=== PATIENT | female | born 1960 | race Caucasian/White ===

== ENCOUNTER 2016-04-26 13:37 | Outpatient (RCR) | payer MEDICAID ==
--- OUTSIDE RECORDS SUMMARY | 2016-02-18 14:11 | XMS REPORT | Continuity of Care Document ---
Author Author [facility] Organization [facility] Address Unknown Phone Unavailable Care Team Providers Care Pastry Artist Name Role Phone LORNA DONALDSON MD PCP Insurance Providers Payer Name Policy Number Subscriber Name Relationship Medicaid [place] [id number] Irina Nolasco 17 Self / Same As Patient Problems No problem information available. Medications No medication information available. Social History Social History Problem Response Recorded Date/Time Recent Foreign Travel N SEE [place] 09/01/2015 2:05pm Hospital Discharge Instructions No hospital discharge instructions. Plan of Care Prescriptions See Medication Section Functional Status No functional status results. Allergies, Adverse Reactions, Alerts No allergy information available. Immunizations No immunization records. Vital Signs No known vital signs results. Results Laboratory Results Test Name Result Units Flags Reference Collection Date/Time Result Date/ Time Comments White Blood Count 10.3 10^3/uL 4.3-11.0 08/27/2015 2:20pm 08/27/2015 2: 38pm Red Blood Count 4.44 10^6/uL 4.35-5.85 08/27/2015 2:20pm 08/27/2015 2: 38pm Hemoglobin 13.3 G/DL 11.5-16.0 08/27/2015 2:20pm 08/27/2015 2:38pm Hematocrit 39 % 35-52 08/27/2015 2:20pm 08/27/2015 2:38pm Mean Corpuscular Volume 88 FL 80-99 08/27/2015 2:20pm 08/27/2015 2: 38pm Mean Corpuscular Hemoglobin 30 PG 25-34 08/27/2015 2:20pm 08/27/2015 2: 38pm Mean Corpuscular Hemoglobin Concent 34 G/DL 32-36 08/27/2015 2:20pm 2:38pm Red Cell Distribution Width 14.1 % 10.0-14.5 08/27/2015 2:20pm 2015 2:38pm Platelet Count 256 10^3/uL 130-400 08/27/2015 2:2008/27/2015 2:38pm Mean Platelet Volume 9.6 FL 7.4-10.4 08/27/2015 2:2008/27/2015 2: 38pm Neutrophils (%) (Auto) 76 % H 42-75 08/27/2015 2:08/27/2015 2:38pm Lymphocytes (%) (Auto) 16 % 12-44 08/27/2015 2:2008/27/2015 2:38pm Monocytes (%) (Auto) 6 % 0-12 08/27/2015 2:08/27/2015 2:38pm Eosinophils (%) (Auto) 2 % 0-10 08/27/2015 2:08/27/2015 2:38pm Basophils (%) (Auto) 0 % 0-10 08/27/2015 2:08/27/2015 2:38pm Neutrophils # (Auto) 7.9 X 10^3 H 1.8-7.8 08/27/2015 2:08/27/2015 2: 38pm Lymphocytes # (Auto) 1.6 X 10^3 1.0-4.0 08/27/2015 2:2008/27/2015 2: 38pm Monocytes # (Auto) 0.6 X 10^3 0.0-1.0 08/27/2015 2:08/27/2015 2: 38pm Eosinophils # (Auto) 0.2 10^3/uL 0.0-0.3 08/27/2015 2:20pm 08/27/2015 2 :38pm Basophils # (Auto) 0.0 10^3/uL 0.0-0.1 08/27/2015 2:20pm 08/27/2015 2: 38pm Sodium Level 141 MMOL/L 135-145 08/27/2015 2:50pm 08/27/2015 3:14pm Potassium Level 3.7 MMOL/L 3.6-5.0 08/27/2015 2:50pm 08/27/2015 3:14pm Chloride Level 107 MMOL/L 98-107 08/27/2015 2:50pm 08/27/2015 3:14pm Carbon Dioxide Level 26 MMOL/L 21-32 08/27/2015 2:50pm 08/27/2015 3: 14pm Anion Gap 8 MMOL/L 5-14 08/27/2015 2:50pm 08/27/2015 3:14pm Blood Urea Nitrogen 6 MG/DL L 7-18 08/27/2015 2:50pm 08/27/2015 3:14pm Creatinine 0.78 MG/DL 0.60-1.30 08/27/2015 2:50pm 08/27/2015 3:14pm BUN/Creatinine Ratio 8 08/27/2015 2:50pm 08/27/2015 3:14pm Estimat Glomerular Filtration Rate > 60 08/27/2015 2:50pm 2015 3:14pm GFR INTERPRETIVE DATA UNITS FOR ESTIMATED GFR (eGFR): mL/min/1.73 M2 REFERENCE RANGE FOR ESTIMATED GFR (eGFR) eGFR NORMAL eGFR >60 MODERATELY DECREASED eGFR 30-59 SEVERLY DECREASED eGFR 15-29 KIDNEY FAILURE <15 (OR DIALYSIS) Glucose Level 129 MG/DL H 70-105 08/27/2015 2:50pm 08/27/2015 3:14pm Calcium Level 8.7 MG/DL 8.5-10.1 08/27/2015 2:50pm 08/27/2015 3:14pm Total Bilirubin 0.3 MG/DL 0.1-1.0 08/27/2015 2:50pm 08/27/2015 3:14pm Alkaline Phosphatase 81 U/L 40-136 08/27/2015 2:50pm 08/27/2015 3:14pm Aspartate Amino Transf (AST/SGOT) 55 U/L H 5-34 08/27/2015 2:50pm 2015 3:14pm Alanine Aminotransferase (ALT/SGPT) 77 U/L H 0-55 08/27/2015 2:50pm 08/26 3:14pm Total Protein 6.8 G/DL 6.4-8.2 08/27/2015 2:50pm 08/27/2015 3:14pm Albumin 4.2 G/DL 3.2-4.5 08/27/2015 2:50pm 08/27/2015 3:14pm Thyroid Stimulating Hormone (TSH) 0.41 UIU/ML 0.35-4.94 08/27/2015 2: 50pm 08/27/2015 3:14pm Procedures No known history of procedures. Encounters Encounter Location Arrival/Admit Date Discharge/Depart Date Attending Provider Discharged Recurring [facility] 10/13/15 11:58am 11:59pm EZEQUIEL THOMPSON MD
[2016-03-08 15:29] LABS: BASOPHILS # (AUTO) 0.1 10^3/uL (0.0-0.1); BASOPHILS % (AUTO) 1 % (0-10); EOSINOPHILS # (AUTO) 0.3 10^3/uL (0.0-0.3); EOSINOPHILS % (AUTO) 4 % (0-10); LYMPHOCYTES # (AUTO) 2.3 X 10^3 (1.0-4.0); LYMPHOCYTES % (AUTO) 26 % (12-44); MEAN CORPUSCULAR HEMOGLOBIN 30 PG (25-34); MEAN CORPUSCULAR HGB CONC 33 G/DL (32-36); MEAN CORPUSCULAR VOLUME 89 FL (80-99); MEAN PLATELET VOLUME 8.9 FL (7.4-10.4); MONOCYTES # (AUTO) 0.7 X 10^3 (0.0-1.0); MONOCYTES % (AUTO) 8 % (0-12); NEUTROPHILS # (AUTO) 5.6 X 10^3 (1.8-7.8); NEUTROPHILS % (AUTO) 62 % (42-75); PLATELET COUNT 328 10^3/uL (130-400); RED BLOOD COUNT 4.39 10^6/uL (4.35-5.85); RED CELL DISTRIBUTION WIDTH 14.8 % (10.0-14.5); WHITE BLOOD COUNT 9.1 10^3/uL (4.3-11.0)
[2016-03-08 15:52] LABS: ALANINE AMINOTRANSFERASE 19 U/L (0-55); ALBUMIN 4.2 G/DL (3.2-4.5); ANION GAP 10 MMOL/L (5-14); ASPARTATE AMINO TRANSFERASE 22 U/L (5-34); BILIRUBIN,TOTAL 0.2 MG/DL (0.1-1.0); BLOOD UREA NITROGEN 7 MG/DL (7-18); BUN/CREATININE RATIO 7; CALCIUM 8.9 MG/DL (8.5-10.1); CARBON DIOXIDE 24 MMOL/L (21-32); CHLORIDE 108 MMOL/L (98-107); CREATININE SERUM 0.94 MG/DL (0.60-1.30); GFR ESTIMATED > 60; GLUCOSE 79 MG/DL (70-105); POTASSIUM 4.2 MMOL/L (3.6-5.0); SODIUM 142 MMOL/L (135-145); TOTAL PROTEIN 6.9 G/DL (6.4-8.2)
== END 2016-05-18 | disposition home or self-care (01) ==
LOC: ONC 13:37
PROVIDERS: ATTEND Internal Medicine Hematology & Oncology
DX: C50.912 Malignant neoplasm of unspecified site of left female breast (principal); E03.9 Hypothyroidism, unspecified; R63.4 Abnormal weight loss; F17.210 Nicotine dependence, cigarettes, uncomplicated; Z17.1 Estrogen receptor negative status [ER-]; Z90.13 Acquired absence of bilateral breasts and nipples; Z45.2 Encounter for adjustment and management of vascular access device
CPT/HCPCS: 36591; 80053; 85025; 86300; 96523; 99213

== ENCOUNTER 2016-06-12 13:30 | Outpatient (RCR) | payer MEDICAID ==
--- OUTSIDE RECORDS SUMMARY | 2016-06-08 13:17 | XMS REPORT | Continuity of Care Document ---
Author Author [facility] Organization [facility] Address Unknown Phone Unavailable Care Team Providers Care Shoe Salesman Name Role Phone LORNA DONALDSON MD PCP Insurance Providers Payer Name Policy Number Subscriber Name Relationship Medicaid [place] [id number] Irina Nolasco 17 Self / Same As Patient Problems No problem information available. Medications No medication information available. Social History Social History Problem Response Recorded Date/Time Recent Foreign Travel No 02/18/2016 2:07pm Hospital Discharge Instructions No hospital discharge instructions. Plan of Care Prescriptions See Medication Section Functional Status No functional status results. Allergies, Adverse Reactions, Alerts No allergy information available. Immunizations No immunization records. Vital Signs No known vital signs results. Results Laboratory Results Test Name Result Units Flags Reference Collection Date/Time Result Date/ Time Comments White Blood Count 9.1 10^3/uL 4.3-11.0 03/08/2016 3:25pm 03/08/2016 3: 29pm Red Blood Count 4.39 10^6/uL 4.35-5.85 03/08/2016 3:25pm 03/08/2016 3: 29pm Hemoglobin 13.0 G/DL 11.5-16.0 03/08/2016 3:25pm 03/08/2016 3:29pm Hematocrit 39 % 35-52 03/08/2016 3:25pm 03/08/2016 3:29pm Mean Corpuscular Volume 89 FL 80-99 03/08/2016 3:25pm 03/08/2016 3: 29pm Mean Corpuscular Hemoglobin 30 PG 25-34 03/08/2016 3:25pm 03/08/2016 3: 29pm Mean Corpuscular Hemoglobin Concent 33 G/DL 32-36 03/08/2016 3:25pm 10/2015 3:29pm Red Cell Distribution Width 14.8 % H 10.0-14.5 03/08/2016 3:25pm 2015 3:29pm Platelet Count 328 10^3/uL 130-400 03/08/2016 3:25pm 03/08/2016 3:29pm Mean Platelet Volume 8.9 FL 7.4-10.4 03/08/2016 3:25pm 03/08/2016 3: 29pm Neutrophils (%) (Auto) 62 % 42-75 03/08/2016 3:25pm 03/08/2016 3:29pm Lymphocytes (%) (Auto) 26 % 12-44 03/08/2016 3:25pm 03/08/2016 3:29pm Monocytes (%) (Auto) 8 % 0-12 03/08/2016 3:25pm 03/08/2016 3:29pm Eosinophils (%) (Auto) 4 % 0-10 03/08/2016 3:25pm 03/08/2016 3:29pm Basophils (%) (Auto) 1 % 0-10 03/08/2016 3:25pm 03/08/2016 3:29pm Neutrophils # (Auto) 5.6 X 10^3 1.8-7.8 03/08/2016 3:25pm 03/08/2016 3: 29pm Lymphocytes # (Auto) 2.3 X 10^3 1.0-4.0 03/08/2016 3:25pm 03/08/2016 3: 29pm Monocytes # (Auto) 0.7 X 10^3 0.0-1.0 03/08/2016 3:25pm 03/08/2016 3: 29pm Eosinophils # (Auto) 0.3 10^3/uL 0.0-0.3 03/08/2016 3:25pm 03/08/2016 3 :29pm Basophils # (Auto) 0.1 10^3/uL 0.0-0.1 03/08/2016 3:25pm 03/08/2016 3: 29pm Sodium Level 142 MMOL/L 135-145 03/08/2016 3:03/08/2016 3:54pm Potassium Level 4.2 MMOL/L 3.6-5.0 03/08/2016 3:03/08/2016 3:54pm Chloride Level 108 MMOL/L H 98-107 03/08/2016 3:03/08/2016 3:54pm Carbon Dioxide Level 24 MMOL/L 21-32 03/08/2016 3:03/08/2016 3: 54pm Anion Gap 10 MMOL/L 5-14 03/08/2016 3:03/08/2016 3:54pm Blood Urea Nitrogen 7 MG/DL 7-18 03/08/2016 3:03/08/2016 3:54pm Creatinine 0.94 MG/DL 0.60-1.30 03/08/2016 3:03/08/2016 3:54pm BUN/Creatinine Ratio 7 03/08/2016 3:03/08/2016 3:54pm Estimat Glomerular Filtration Rate > 60 03/08/2016 3:2015 3:54pm GFR INTERPRETIVE DATA UNITS FOR ESTIMATED GFR (eGFR): mL/min/1.73 M2 REFERENCE RANGE FOR ESTIMATED GFR (eGFR) eGFR NORMAL eGFR >60 MODERATELY DECREASED eGFR 30-59 SEVERLY DECREASED eGFR 15-29 KIDNEY FAILURE <15 (OR DIALYSIS) Glucose Level 79 MG/DL 70-105 03/08/2016 3:03/08/2016 3:54pm Calcium Level 8.9 MG/DL 8.5-10.1 03/08/2016 3:03/08/2016 3:54pm Total Bilirubin 0.2 MG/DL 0.1-1.0 03/08/2016 3:03/08/2016 3:54pm Alkaline Phosphatase 89 U/L 40-136 03/08/2016 3:03/08/2016 3:54pm Aspartate Amino Transf (AST/SGOT) 22 U/L 5-34 03/08/2016 3:2015 3:54pm Alanine Aminotransferase (ALT/SGPT) 19 U/L 0-55 03/08/2016 3:03/08 3:54pm Total Protein 6.9 G/DL 6.4-8.2 03/08/2016 3:25pm 03/08/2016 3:54pm Albumin 4.2 G/DL 3.2-4.5 03/08/2016 3:25pm 03/08/2016 3:54pm Procedures No known history of procedures. Encounters Encounter Location Arrival/Admit Date Discharge/Depart Date Attending Provider Discharged Recurring [facility] 04/26/16 1:37pm 11:59pm EZEQUIEL THOMPSON MD
[2016-06-12 14:01] LABS: BASOPHILS % (AUTO) 0 % (0-10); EOSINOPHILS # (AUTO) 0.3 10^3/uL (0.0-0.3); EOSINOPHILS % (AUTO) 3 % (0-10); LYMPHOCYTES # (AUTO) 1.7 X 10^3 (1.0-4.0); LYMPHOCYTES % (AUTO) 18 % (12-44); MEAN CORPUSCULAR HEMOGLOBIN 29 PG (25-34); MEAN CORPUSCULAR HGB CONC 33 G/DL (32-36); MEAN CORPUSCULAR VOLUME 89 FL (80-99); MEAN PLATELET VOLUME 9.2 FL (7.4-10.4); MONOCYTES # (AUTO) 0.9 X 10^3 (0.0-1.0); MONOCYTES % (AUTO) 10 % (0-12); NEUTROPHILS # (AUTO) 6.4 X 10^3 (1.8-7.8); NEUTROPHILS % (AUTO) 69 % (42-75); PLATELET COUNT 308 10^3/uL (130-400); RED BLOOD COUNT 4.56 10^6/uL (4.35-5.85); RED CELL DISTRIBUTION WIDTH 14.9 % (10.0-14.5); WHITE BLOOD COUNT 9.3 10^3/uL (4.3-11.0)
[2016-06-12 14:36] LABS: ALANINE AMINOTRANSFERASE 23 U/L (0-55); ANION GAP 10 MMOL/L (5-14); ASPARTATE AMINO TRANSFERASE 27 U/L (5-34); BILIRUBIN,TOTAL 0.2 MG/DL (0.1-1.0); BLOOD UREA NITROGEN 8 MG/DL (7-18); BUN/CREATININE RATIO 9; CALCIUM 8.5 MG/DL (8.5-10.1); CARBON DIOXIDE 23 MMOL/L (21-32); CHLORIDE 109 MMOL/L (98-107); CREATININE SERUM 0.85 MG/DL (0.60-1.30); GFR ESTIMATED > 60; GLUCOSE 103 MG/DL (70-105); POTASSIUM 4.1 MMOL/L (3.6-5.0); SODIUM 142 MMOL/L (135-145); TOTAL PROTEIN 6.5 G/DL (6.4-8.2)
== END 2016-09-06 | disposition home or self-care (01) ==
LOC: ONC 13:30
PROVIDERS: ATTEND Internal Medicine Hematology & Oncology
DX: C50.912 Malignant neoplasm of unspecified site of left female breast (principal); E03.9 Hypothyroidism, unspecified; F17.210 Nicotine dependence, cigarettes, uncomplicated; Z17.1 Estrogen receptor negative status [ER-]; Z90.13 Acquired absence of bilateral breasts and nipples; Z45.2 Encounter for adjustment and management of vascular access device
CPT/HCPCS: 36415; 80053; 85025; 96523; 99213

== ENCOUNTER 2017-06-20 13:41 | Outpatient (RCR) | payer MEDICAID ==
[2017-06-20 14:12] LABS: BASOPHILS % (AUTO) 0 % (0-10); EOSINOPHILS # (AUTO) 0.2 10^3/uL (0.0-0.3); EOSINOPHILS % (AUTO) 3 % (0-10); HEMATOCRIT 42 % (35-52); HEMOGLOBIN 14.1 G/DL (11.5-16.0); LYMPHOCYTES # (AUTO) 1.8 X 10^3 (1.0-4.0); LYMPHOCYTES % (AUTO) 26 % (12-44); MEAN CORPUSCULAR HEMOGLOBIN 30 PG (25-34); MEAN CORPUSCULAR HGB CONC 34 G/DL (32-36); MEAN CORPUSCULAR VOLUME 90 FL (80-99); MEAN PLATELET VOLUME 9.4 FL (7.4-10.4); MONOCYTES # (AUTO) 0.8 X 10^3 (0.0-1.0); MONOCYTES % (AUTO) 12 % (0-12); NEUTROPHILS # (AUTO) 4.1 X 10^3 (1.8-7.8); NEUTROPHILS % (AUTO) 59 % (42-75); PLATELET COUNT 296 10^3/uL (130-400); RED BLOOD COUNT 4.69 10^6/uL (4.35-5.85); RED CELL DISTRIBUTION WIDTH 14.4 % (10.0-14.5); WHITE BLOOD COUNT 6.9 10^3/uL (4.3-11.0)
[2017-06-20 14:32] LABS: ALANINE AMINOTRANSFERASE 22 U/L (0-55); ALBUMIN 4.3 GM/DL (3.2-4.5); ALKALINE PHOSPHATASE 61 U/L (40-136); BILIRUBIN,TOTAL 0.3 MG/DL (0.1-1.0); BUN/CREATININE RATIO 11; CALCIUM 9.4 MG/DL (8.5-10.1); CARBON DIOXIDE 25 MMOL/L (21-32); CHLORIDE 105 MMOL/L (98-107); CREATININE SERUM 0.73 MG/DL (0.60-1.30); GFR ESTIMATED > 60; GLUCOSE 101 MG/DL (70-105); SODIUM 139 MMOL/L (135-145); TOTAL PROTEIN 7.1 GM/DL (6.4-8.2)
[2017-06-20] MEDS ORDERED: QUET200T57 (15:00)
[2017-06-20] MEDS ORDERED: FENT1PAT8 (15:00)
[2017-06-20] MEDS ORDERED: ZOLP10TA5 (15:00)
[2017-06-20] MEDS ORDERED: PROM25TA14 (15:00)
== END 2017-09-18 | disposition home or self-care (01) ==
LOC: ONC 13:41
PROVIDERS: ATTEND Internal Medicine Hematology & Oncology
DX: C50.912 Malignant neoplasm of unspecified site of left female breast (principal); E03.9 Hypothyroidism, unspecified; F17.210 Nicotine dependence, cigarettes, uncomplicated; Z17.1 Estrogen receptor negative status [ER-]; Z90.13 Acquired absence of bilateral breasts and nipples
CPT/HCPCS: 36415; 36591; 80053; 85025

== ENCOUNTER 2017-06-20 14:37 | Emergency (ER) | payer MEDICAID ==
[~2017-06-20] VITALS: Ht 167.6 cm; Wt 66.7 kg
--- OUTSIDE RECORDS SUMMARY | 2017-06-20 14:45 | XMS REPORT | Continuity of Care Document ---
Author Author [facility] Organization [facility] Address Unknown Phone Unavailable Allergies There is no data. Medications There is no data. Problems Date Dx Coded Attending Type Code Diagnosis Diagnosed By 09/01/2014 PASCALE BRAGG Ot 174.9 MALIGN NEOPL BREAST NOS 09/01/2014 PASCALE BRAGG Ot 305.1 TOBACCO USE DISORDER 09/01/2014 PASCALE BRAGG Ot V58.69 OTH MED,LT,CURRENT USE 09/01/2014 DONNA SCOTT, EZEQUIEL Ot 174.9 09/01/2014 DONNA SCOTT, EZEQUIEL Ot 305.1 09/01/2014 DONNA SCOTT, EZEQUIEL Ot V58.69 09/08/2014 DONNA SCOTT, EZEQUIEL Ot 174.9 09/08/2014 DONNA SCOTT, STEPHANIE-KATHY Ot 305.1 09/08/2014 DONNA SCOTT, EZEQUIEL Ot V58.69 09/16/2014 DONNA SCOTT, EZEQUIEL Ot 174.9 09/16/2014 DONNA SCOTT, STEPHANIE-KATHY Ot 305.1 09/16/2014 DONNA SCOTT, STEPHANIE-KATHY Ot V58.69 09/17/2014 DONNA SCOTT, EZEQUIEL Ot 174.9 09/17/2014 DONNA SCOTT, STEPHANIE-KATHY Ot 305.1 09/17/2014 DONNA SCOTT, EZEQUIEL Ot V58.69 10/21/2014 DONNA SCOTT, EZEQUIEL Ot 174.9 10/21/2014 DONNA SCOTT, STEPHANIE-KATHY Ot 305.1 10/21/2014 DONNA SCOTT, EZEQUIEL Ot V58.69 12/15/2014 DONNA SCOTT, EZEQUIEL Ot 174.9 MALIGN NEOPL BREAST NOS 12/15/2014 DONNA SCOTT, EZEQUIEL Ot 305.1 TOBACCO USE DISORDER 12/15/2014 DONNA SCOTT, EZEQUIEL Ot V58.69 OTH MED,LT,CURRENT USE 02/11/2015 DONNA SCOTT, EZEQUIEL Ot 174.9 02/11/2015 DONNA SCOTT, EZEQUIEL Ot 305.1 02/11/2015 DONNA SCOTT, EZEQUIEL Ot V58.69 03/19/2015 DONNA SCOTT, EZEQUIEL Ot 174.9 03/19/2015 DONNA SCOTT, EZEQUIEL Ot 305.1 03/19/2015 DONNA SCOTT, EZEQUIEL Ot V58.69 05/18/2015 EZEQUIEL THOMPSON MD, Ot C50.912 MALIGNANT NEOPLASM OF UNSPECIFIED SITE O 05/18/2015 EZEQUIEL THOMPSON MD Ot E03.9 HYPOTHYROIDISM, UNSPECIFIED 05/18/2015 EZEQUIEL THOMPSON MD Ot F17.210 NICOTINE DEPENDENCE, CIGARETTES, UNCOMPL 05/18/2015 EZEQUIEL THOMPSON MD, Ot R63.4 ABNORMAL WEIGHT LOSS 05/18/2015 EZEQUIEL THOMPSON MD Ot Z17.1 ESTROGEN RECEPTOR NEGATIVE STATUS [ER-] 05/18/2015 EZEQUIEL THOMPSON MD, Ot Z45.2 ENCOUNTER FOR ADJUSTMENT AND MANAGEMENT 05/18/2015 EZEQUIEL THOMPSON MD Ot 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 08/25/2015 EZEQUIEL THOMPSON MD Ot C50.912 MALIGNANT NEOPLASM OF UNSPECIFIED SITE O 08/25/2015 EZEQUIEL THOMPSON MD Ot E03.9 HYPOTHYROIDISM, UNSPECIFIED 08/25/2015 EZEQUIEL THOMPSON MD Ot F17.210 NICOTINE DEPENDENCE, CIGARETTES, UNCOMPL 08/25/2015 EZEQUIEL THOMPSON MD Ot R63.4 ABNORMAL WEIGHT LOSS 08/25/2015 EZEQUIEL THOMPSON MD, Ot Z17.1 ESTROGEN RECEPTOR NEGATIVE STATUS [ER-] 08/25/2015 EZEQUIEL THOMPSON MD Ot Z45.2 ENCOUNTER FOR ADJUSTMENT AND MANAGEMENT 08/25/2015 EZEQUIEL THOMPSON MD Ot 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 08/31/2015 EZEQUIEL THOMPSON MD, Ot C50.912 MALIGNANT NEOPLASM OF UNSPECIFIED SITE O 08/31/2015 EZEQUIEL THOMPSON MD Ot E03.9 HYPOTHYROIDISM, UNSPECIFIED 08/31/2015 EZEQUIEL THOMPSON MD Ot F17.210 NICOTINE DEPENDENCE, CIGARETTES, UNCOMPL 08/31/2015 EZEQUIEL THOMPSON MD Ot R63.4 ABNORMAL WEIGHT LOSS 08/31/2015 EZEQUIEL THOMPSON MD Ot Z17.1 ESTROGEN RECEPTOR NEGATIVE STATUS [ER-] 08/31/2015 EZEQUIEL THOMPSON MD Ot Z45.2 ENCOUNTER FOR ADJUSTMENT AND MANAGEMENT 08/31/2015 EZEQUIEL THOMPSON MD Ot 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 10/07/2015 EZEQUIEL THOMSPON MD Ot C50.912 MALIGNANT NEOPLASM OF UNSPECIFIED SITE O 10/07/2015 EZEQUIEL THOMPSON MD Ot E03.9 HYPOTHYROIDISM, UNSPECIFIED 10/07/2015 EZEQUIEL THOMPSON MD Ot F17.210 NICOTINE DEPENDENCE, CIGARETTES, UNCOMPL 10/07/2015 EZEQUIEL THOMPSON MD Ot R63.4 ABNORMAL WEIGHT LOSS 10/07/2015 EZEQUIEL THOMPSON MD, Ot Z17.1 ESTROGEN RECEPTOR NEGATIVE STATUS [ER-] 10/07/2015 EZEQUIEL THOMPSON MD Ot Z45.2 ENCOUNTER FOR ADJUSTMENT AND MANAGEMENT 10/07/2015 EZEQUIEL THOMPSON MD Ot 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 11/25/2015 EZEQUIEL THOMPSON MD Ot C50.912 MALIGNANT NEOPLASM OF UNSPECIFIED SITE O 11/25/2015 EZEQUIEL THOMPSON MD Ot E03.9 HYPOTHYROIDISM, UNSPECIFIED 11/25/2015 EZEQUIEL THOMPSON MD Ot F17.210 NICOTINE DEPENDENCE, CIGARETTES, UNCOMPL 11/25/2015 EZEQUIEL THOMPSON MD Ot R63.4 ABNORMAL WEIGHT LOSS 11/25/2015 EZEQUIEL THOMPSON MD Ot Z17.1 ESTROGEN RECEPTOR NEGATIVE STATUS [ER-] 11/25/2015 EZEQUIEL THOMPSON MD Ot Z45.2 ENCOUNTER FOR ADJUSTMENT AND MANAGEMENT 11/25/2015 EZEQUIEL THOMPSON MD Ot 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 02/21/2016 EZEQUIEL THOMPSON MD Ot C50.912 MALIGNANT NEOPLASM OF UNSPECIFIED SITE O 02/21/2016 EZEQUIEL THOMPSON MD Ot E03.9 HYPOTHYROIDISM, UNSPECIFIED 02/21/2016 EZEQUIEL THOMPSON MD Ot F17.210 NICOTINE DEPENDENCE, CIGARETTES, UNCOMPL 02/21/2016 EZEQUIEL THOMPSON MD Ot R63.4 ABNORMAL WEIGHT LOSS 02/21/2016 EZEQUIEL THOMPSON MD Ot Z17.1 ESTROGEN RECEPTOR NEGATIVE STATUS [ER-] 02/21/2016 EZEQUIEL THOMPSON MD Ot Z45.2 ENCOUNTER FOR ADJUSTMENT AND MANAGEMENT 02/21/2016 EZEQUIEL THOMPSON MD Ot 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 03/17/2016 EZEQUIEL THOMPSON MD Ot C50.912 MALIGNANT NEOPLASM OF UNSPECIFIED SITE O 03/17/2016 EZEQUIEL THOMPSON MD Ot E03.9 HYPOTHYROIDISM, UNSPECIFIED 03/17/2016 EZEQUIEL THOMPSON MD Ot F17.210 NICOTINE DEPENDENCE, CIGARETTES, UNCOMPL 03/17/2016 EZEQUIEL THOMPSON MD Ot R63.4 ABNORMAL WEIGHT LOSS 03/17/2016 EZEQUIEL THOMPSON MD Ot Z17.1 ESTROGEN RECEPTOR NEGATIVE STATUS [ER-] 03/17/2016 EZEQUIEL THOMPSON MD Ot Z45.2 ENCOUNTER FOR ADJUSTMENT AND MANAGEMENT 03/17/2016 EZEQUIEL THOMPSON MD Ot 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 05/05/2016 EZEQUIEL THOMPSON MD Ot C50.912 MALIGNANT NEOPLASM OF UNSPECIFIED SITE O 05/05/2016 EZEQUIEL THOMPSON MD Ot E03.9 HYPOTHYROIDISM, UNSPECIFIED 05/05/2016 EZEQUIEL THOMPSON MD Ot F17.210 NICOTINE DEPENDENCE, CIGARETTES, UNCOMPL 05/05/2016 EZEQUIEL THOMPSON MD Ot R63.4 ABNORMAL WEIGHT LOSS 05/05/2016 EZEQUIEL THOMPSON MD Ot Z17.1 ESTROGEN RECEPTOR NEGATIVE STATUS [ER-] 05/05/2016 EZEQUIEL THOMPSON MD Ot Z45.2 ENCOUNTER FOR ADJUSTMENT AND MANAGEMENT 05/05/2016 EZEQUIEL THOMPSON MD Ot 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 05/18/2016 EZEQUIEL THOMPSON MD Ot C50.912 MALIGNANT NEOPLASM OF UNSPECIFIED SITE O 05/18/2016 EZEQUIEL THOMPSON MD Ot E03.9 HYPOTHYROIDISM, UNSPECIFIED 05/18/2016 EZEQUIEL THOMPSON MD Ot F17.210 NICOTINE DEPENDENCE, CIGARETTES, UNCOMPL 05/18/2016 EZEQUIEL THOMPSON MD Ot R63.4 ABNORMAL WEIGHT LOSS 05/18/2016 EZEQUIEL THOMPSON MD Ot Z17.1 ESTROGEN RECEPTOR NEGATIVE STATUS [ER-] 05/18/2016 EZEQUIEL THOMPSON MD Ot Z45.2 ENCOUNTER FOR ADJUSTMENT AND MANAGEMENT 05/18/2016 EZEQUIEL THOMPSON MD Ot 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 06/08/2016 EZEQUIEL THOMPSON MD, Ot C50.912 MALIGNANT NEOPLASM OF UNSPECIFIED SITE O 06/08/2016 EZEQUIEL THOMPSON MD Ot E03.9 HYPOTHYROIDISM, UNSPECIFIED 06/08/2016 EZEQUIEL THOMPSON MD Ot F17.210 NICOTINE DEPENDENCE, CIGARETTES, UNCOMPL 06/08/2016 EZEQUIEL THOMPSON MD Ot R63.4 ABNORMAL WEIGHT LOSS 06/08/2016 EZEQUIEL THOMPSON MD Ot Z17.1 ESTROGEN RECEPTOR NEGATIVE STATUS [ER-] 06/08/2016 EZEQUIEL THOMPSON MD Ot Z45.2 ENCOUNTER FOR ADJUSTMENT AND MANAGEMENT 06/08/2016 EZEQUIEL THOMPSON MD Ot 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 06/09/2016 EZEQUIEL THOMPSON MD, Ot C50.912 MALIGNANT NEOPLASM OF UNSPECIFIED SITE O 06/09/2016 EZEQUIEL THOMPSON MD Ot E03.9 HYPOTHYROIDISM, UNSPECIFIED 06/09/2016 EZEQUIEL THOMPSON MD Ot F17.210 NICOTINE DEPENDENCE, CIGARETTES, UNCOMPL 06/09/2016 EZEQUIEL THOMPSON MD Ot R63.4 ABNORMAL WEIGHT LOSS 06/09/2016 EZEQUIEL THOMPSON MD Ot Z17.1 ESTROGEN RECEPTOR NEGATIVE STATUS [ER-] 06/09/2016 EZEQUIEL THOMPSON MD Ot Z45.2 ENCOUNTER FOR ADJUSTMENT AND MANAGEMENT 06/09/2016 EZEQUIEL THOMPSON MD Ot 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 07/25/2016 EZEQUIEL THOMPSON MD Ot C50.912 MALIGNANT NEOPLASM OF UNSPECIFIED SITE O 07/25/2016 EZEQUIEL THOMPSON MD Ot E03.9 HYPOTHYROIDISM, UNSPECIFIED 07/25/2016 EZEQUIEL THOMPSON MD Ot F17.210 NICOTINE DEPENDENCE, CIGARETTES, UNCOMPL 07/25/2016 EZEQUIEL THOMPSON MD Ot Z17.1 ESTROGEN RECEPTOR NEGATIVE STATUS [ER-] 07/25/2016 EZEQUIEL THOMPSON MD Ot Z45.2 ENCOUNTER FOR ADJUSTMENT AND MANAGEMENT 07/25/2016 EZEQUIEL THOMPSON MD Ot 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 Results There is no data. Encounters ACCT No. Visit Date/Time Discharge Status Pt. Type Provider Facility Loc./Unit Complaint [id number] 09/07/2016 00:16:00 09/07/2016 23:59:59 CLS Preadmit EZEQUIEL THOMPSON MD [facility] ONC [id number] 06/12/2016 13:30:00 09/06/2016 00:01:00 DIS Outpatient EZEQUIEL THOMPSON MD [facility] ONC [id number] 04/26/2016 13:37:00 05/18/2016 00:01:00 DIS Outpatient EZEQUIEL THOMPSON MD [facility] ONC [id number] 10/13/2015 11:58:00 11/25/2015 00:01:00 DIS Outpatient EZEQUIEL THOMPSON MD [facility] ONC [id number] 05/12/2015 12:16:00 05/18/2015 00:01:00 DIS Outpatient EZEQUIEL THOMPSON MD [facility] ONC [id number] 11/25/2014 13:57:00 12/15/2014 00:01:00 DIS Outpatient EZEQUIEL THOMPSON MD [facility] ONC [id number] 08/20/2014 13:59:00 09/01/2014 13:13:00 DIS Outpatient PASCALE BRAGG [facility] ONC
--- NOTE | 2017-06-20 14:58 | ED Headache ---
General Stated Complaint: MIGRAINE/VOMITING Source: patient Exam Limitations: no limitations History of Present Illness Date Seen by Provider: Jun 20, 2017 Time Seen by Provider: 14:56 Initial Comments To ER with complaints of a left frontal migraine for 3 days which feels similar to her previous migraines. She arrives to the cancer center for her annual follow-up or she follows for a history of breast cancer. She complained to them of this may advised they could not give her her requested Demerol and Phenergan. Severity/Quality: constant Location: frontal Associated Symptoms: denies symptoms Allergies and Home Medications Allergies Coded Allergies: butorphanol (Verified Allergy, Unknown, 06/20/17) nalbuphine (Verified Allergy, Unknown, 06/20/17) prochlorperazine (Verified Allergy, Unknown, 06/20/17) Patient Home Medication List Home Medication List Reviewed: Yes Constitutional: see HPI Eyes: No Symptoms Reported Ears, Nose, Mouth, Throat: no symptoms reported Respiratory: no symptoms reported Cardiovascular: no symptoms reported Gastrointestinal: nausea, vomiting Musculoskeletal: no symptoms reported Skin: no symptoms reported Psychiatric/Neurological: See HPI, Headache Past Tbccmts-Tyiaum-Pfkkie Hx Patient Social History Recent Foreign Travel: No Contact w/Someone Who Travel: No Physical Exam Vital Signs Vital Signs - First Documented 06/20/17 06/20/17 14:50 15:52 Temp 98.3 Pulse 83 Resp 18 B/P (MAP) 105/75 (85) Pulse Ox 98 O2 Delivery Room Air Capillary Refill : General Appearance: WD/WN, no apparent distress HEENT: PERRL/EOMI, normal ENT inspection Neck: non-tender, full range of motion Respiratory: no respiratory distress, no accessory muscle use Gastrointestinal: normal bowel sounds, non tender Extremities: normal range of motion, non-tender Psychiatric: alert, oriented x 3 Crainal Nerves: normal hearing, normal speech, PERRL Skin: normal color, warm/dry Progress/Results/Core Measures Results/Orders My Orders Orders - LJ MENDOZA APRN Diphenhydramine Injection (Benadryl Inje (06/20/17 15:00) Promethazine Injection (Phenergan Injec (06/20/17 15:00) Ketorolac Injection (Toradol Injection) (06/20/17 15:00) Medications Given in ED Vital Signs/I&O Vital Sign - Last 12Hours 3/21/18 3/21/18 14:50 15:52 Temp 98.3 Pulse 83 82 Resp 18 18 B/P (MAP) 105/75 (85) 98/59 Pulse Ox 98 O2 Delivery Room Air Room Air Departure Communication (Admissions) Progress Notes 1522- is noted to have a prescription for fentanyl patches but she states she is not wearing it currently and has not been using for it 4 days because she thought it was causing a rebound headache. However, she reports to me that her headache started 3 days ago. Impression Impression: Primary Impression: Headache Disposition: 01 HOME, SELF-CARE Condition: Stable Departure-Patient Inst. Decision time for Depature: 14:57 Referrals: NO,LOCAL PHYSICIAN (PCP/Family) Primary Care Physician Patient Instructions: HEADACHE Add. Discharge Instructions: 1. Follow up with your doctor this week LJ MENDOZA APRN Jun 20, 2017 14:58
[2017-06-20] MEDS ORDERED: FENT1PAT8 (15:00)
[2017-06-20] MEDS ORDERED: QUET200T57 (15:00)
[2017-06-20] MEDS ORDERED: ZOLP10TA5 (15:00)
[2017-06-20] MEDS ORDERED: KETOROLAC 60 MG/2 ML VIAL IM ONE (15:00)
[2017-06-20] MEDS ORDERED: PROMETHAZINE INJ 25 MG/ML (PHENERGAN) AMP IM ONE (15:00)
[2017-06-20] MEDS ORDERED: PROM25TA14 (15:00)
[2017-06-20] MEDS ORDERED: diphenhydrAMINE 50 MG/ML INJ (BENADRYL) IM ONE (15:00)
[2017-06-20 15:52] VITALS: BP 98/59
== END 2017-06-20 15:52 | disposition home or self-care (01) ==
LOC: EDUNIT# 14:37 → ER 14:39
DX: R51 Headache (principal); Z85.3 Personal history of malignant neoplasm of breast; Z88.6 Allergy status to analgesic agent; Z88.8 Allergy status to other drugs, medicaments and biological substances
CPT/HCPCS: 96372; 99284